=== PATIENT | female | born 1980 | race Caucasian/White ===

== ENCOUNTER 2024-03-16 08:37 | Outpatient (REF) | payer OTHER, SELFPAY ==
--- NOTE | ~2024-03-16 | US_ITS ---
EXAMINATION: US VENOUS WITH DOPPLER UPPER EXTREMITY, RIGHT CLINICAL INFORMATION: Rule out DVT COMPARISON: None available. TECHNIQUE: Ultrasound of the upper extremity is performed using compression sonography and color and pulse Doppler flow with assessment of augmentation of flow. There is also imaging and Doppler assessment of the jugular and subclavian veins. Spectral analysis with color-flow imaging is performed. FINDINGS: Respiratory variation, normal compression, and augmented flow are noted throughout the upper extremity including the axillary, brachial, cubital, and radial and ulnar veins. There is normal flow in the internal jugular and subclavian veins. There is no visible deep or superficial thrombophlebitis. There is a thrombosis of superficial vein suggesting thrombophlebitis near the wrist. If the patient's symptoms progress, a followup ultrasound in 5 -7 days might be of value to exclude proximal propagation from a nonvisualized distal arm vein. US/US venous duplex UE RT IMPRESSION: 1. No DVT demonstrated in the right upper extremity. 2. Superficial thrombophlebitis in the right wrist region.
== END 2024-03-16 08:38 | disposition home or self-care (01) ==
LOC: HO.UMASIMG 08:37
PROVIDERS: Visit Provider Nurse Practitioner
DX: I80.8 Phlebitis and thrombophlebitis of other sites (principal)
CPT/HCPCS: 93971

== ENCOUNTER 2024-03-18 09:12 | Outpatient (REF) | payer OTHER, SELFPAY | END 2024-03-18 09:13 | disposition home or self-care (01) | LOC: HO.UMASIMG 09:12 | PROVIDERS: Visit Provider Nurse Practitioner | DX: Z13.89 Encounter for screening for other disorder (principal) ==

== ENCOUNTER 2024-04-06 08:05 | Outpatient (REF) | payer OTHER, SELFPAY ==
--- NOTE | ~2024-04-06 | US_ITS ---
EXAMINATION: US VENOUS WITH DOPPLER UPPER EXTREMITY, RIGHT CLINICAL INFORMATION: History of right forearm for official thrombophlebitis 03/16/2024 COMPARISON: Above TECHNIQUE: Ultrasound of the upper extremity is performed using compression sonography and color and pulse Doppler flow with assessment of augmentation of flow. There is also imaging and Doppler assessment of the jugular and subclavian veins. Spectral analysis with color-flow imaging is performed. FINDINGS: Respiratory variation, normal compression, and augmented flow are noted throughout the upper extremity including the axillary, brachial, cubital, and radial and ulnar veins. There is normal flow in the internal jugular and subclavian veins. There is no visible deep or superficial thrombophlebitis. In the region of palpable abnormality, distal dorsal forearm, persistent thrombosed superficial vein is seen but is less distended and currently appears nearly fully compressible. If the patient's symptoms progress, a followup ultrasound in 5 -7 days might be of value to exclude proximal propagation from a nonvisualized distal arm vein. US/US venous duplex UE RT IMPRESSION: No DVT demonstrated in the right upper extremity. Improved right distal forearm superficial thrombophlebitis.
== END 2024-04-06 08:06 | disposition home or self-care (01) ==
LOC: HO.UMASIMG 08:05
PROVIDERS: Visit Provider Nurse Practitioner
DX: I80.8 Phlebitis and thrombophlebitis of other sites (principal); N76.0 Acute vaginitis
CPT/HCPCS: 93971

== ENCOUNTER 2024-04-26 13:05 | Outpatient (REF) | payer OTHER, SELFPAY ==
--- NOTE | ~2024-04-26 | MR_ITS ---
MRV OF THE HEAD WITH AND WITHOUT CONTRAST INDICATION: Unilateral headache. COMPARISON: None available. TECHNIQUE: A noncontrast and gadolinium infusion MRV of the head are obtained, the latter following the administration of 10 mL of Gadavist intravenous contrast without complication. Vascular post-processing, including 2-dimensional and 3-dimensional reformatted images were created and reviewed on an independent workstation under concurrent physician supervision. Stenoses are graded per criteria similar to NASCET. 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 There is no cerebral venous thrombosis. No pathologic enhancement intracranially. MR/MR venography head wo/w con IMPRESSION: There is no cerebral venous thrombosis. 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
[2024-04-26] MEDS: gadobutroL 10 ML VIAL IVPUSH (14:49)
== END 2024-04-26 13:06 | disposition home or self-care (01) ==
LOC: HO.MRI 13:05
PROVIDERS: Visit Provider Nurse Practitioner
DX: R51.9 Headache, unspecified (principal)
CPT/HCPCS: 70546; A9585